=== PATIENT | born 2000 | race Caucasian/White ===

== ENCOUNTER 2021-04-03 14:26 | Outpatient (REF) | payer SELFPAY ==
[2021-04-05 11:04] LABS: COVID-19 RT-PCR UVMMC Result Negative (Negative)
== END 2021-04-03 14:27 | disposition home or self-care (01) ==
LOC: LBN 14:26
PROVIDERS: Visit Provider Nurse Practitioner Family
DX: J06.9 Acute upper respiratory infection, unspecified (principal); Z20.822 Contact with and (suspected) exposure to COVID-19
CPT/HCPCS: U0003